=== PATIENT | female | born 1990 | race Two or more races ===

== ENCOUNTER 2020-05-12 20:05 | Emergency (ER) | payer MEDICAID, OTHER ==
[~2020-05-12] VITALS: Ht 160 cm; Wt 68.0 kg
[2020-05-12 20:18] VITALS: BP 121/75
[2020-05-12 21:39] LABS: Basophils # (auto) 0.1 10 ^3/uL (0-0.2); Eosinophils # (auto) 0.6 10 ^3/uL (0-0.8); Eosinophils % (auto) 6.1 % (0.0-7.0); Hemoglobin 13.4 g/dL (12.2-16.2); Lymphocytes # (auto) 3.3 10 ^3/uL (0.4-5.4); Lymphocytes % (auto) 32.2 % (10.0-50.0); Mean Corpuscular Hemoglobin 28.6 pg (28.0-32.0); Mean Corpuscular Hgb Conc. 33.5 g/dL (32.0-36.0); Mean Corpuscular Volume 85.2 fL (80.0-100.0); Monocytes # (auto) 0.7 10 ^3/uL (0-1.3); Monocytes % (auto) 6.5 % (0.0-12.0); Neutrophils # (auto) 5.5 10 ^3/uL (1.6-8.6); Neutrophils % (auto) 54.2 % (37.0-80.0); Platelet Count (auto) 284 10^3/uL (140-450); Red Blood Cells 4.69 10^6/uL (4.0-5.20); Red Cell Distribution Width 12.7 % (11.8-14.3); White Blood Cell 10.2 10^3/uL (4.4-10.8)
[2020-05-12 22:01] LABS: Albumin 3.6 g/dL (3.4-5.0); Anion Gap 5 (5-15); BUN/Creatinine Ratio 14.3; Blood Urea Nitrogen 11 mg/dL (7-18); Calcium 8.3 mg/dL (8.5-10.1); Carbon Dioxide 25 mmol/L (21-32); Chloride 108 mmol/L (98-107); GFR African American 116 mL/min; GFR Non-African American 96 mL/min; Glucose 96 mg/dL (74-106); Potassium 4.7 mmol/L (3.5-5.1); Sodium 138 mmol/L (136-145)
[2020-05-12 22:04] LABS: Alanine Aminotransferase 20 U/L (13-56); Alkaline Phosphatase 68 U/L (45-117); Aspartate Aminotransferase 15 U/L (15-37); Bilirubin, Total 0.3 mg/dL (0.2-1.0); Total Protein 6.9 g/dL (6.4-8.2)
[2020-05-12 22:19] LABS: Partial Thromboplastin Time 28.6 sec (23.0-31.2)
[2020-05-12 22:29] LABS: Urine Bacteria FEW /hpf (None Seen); Urine Blood 3+ /uL (Negative); Urine WBC 21 /hpf (0 - 5); Urine WBC Clumps PRESENT /hpf (None Seen)
[2020-05-12 22:32] LABS: Urine Specific Gravity 1.028 (1.001-1.035)
== END 2020-05-13 00:32 | disposition home or self-care (01) ==
LOC: ER 20:07
DX: N92.6 Irregular menstruation, unspecified (principal); Z88.0 Allergy status to penicillin
CPT/HCPCS: 36415; 80053; 81001; 84702; 85025; 85610; 85730

== ENCOUNTER 2021-02-04 12:25 | Observation (INO) | payer MEDICAID ==
[2021-02-04] MEDS ORDERED: PREN-96 PO (14:02)
== END 2021-02-04 14:19 | disposition home or self-care (01) ==
LOC: LDRP 12:25
PROVIDERS: ADMIT Obstetrics & Gynecology; ATTEND Obstetrics & Gynecology
DX: O34.63 Maternal care for abnormality of vagina, third trimester (principal); N89.8 Other specified noninflammatory disorders of vagina; O26.893 Other specified pregnancy related conditions, third trimester; R10.9 Unspecified abdominal pain; Z3A.38 38 weeks gestation of pregnancy; Z79.899 Other long term (current) drug therapy; Z88.0 Allergy status to penicillin
CPT/HCPCS: 59025; 81002; 84112; 94760; G0378; G0379; Q0114

== ENCOUNTER 2021-03-01 17:45 | Emergency (ER) | payer MEDICAID ==
[~2021-03-01] VITALS: Ht 157.5 cm; Wt 72.6 kg
[~2021-03-01 17:45] MED LIST: PREN-96 PO
[2021-03-01 17:47] VITALS: BP 128/83
== END 2021-03-02 00:25 | disposition left against medical advice (07) ==
LOC: ER 17:45
DX: M79.601 Pain in right arm (principal); R22.31 Localized swelling, mass and lump, right upper limb; L53.9 Erythematous condition, unspecified; Z53.21 Procedure and treatment not carried out due to patient leaving prior to being seen by health care provider

== ENCOUNTER 2022-07-07 16:58 | Emergency (ER) | payer MEDICAID ==
[~2022-07-07] VITALS: Ht 157.5 cm; Wt 70.8 kg
[2022-07-07 17:44] VITALS: BP 116/71
== END 2022-07-07 21:20 | disposition left against medical advice (07) ==
LOC: ER 16:58
DX: H92.03 Otalgia, bilateral (principal); R51.9 Headache, unspecified; Z53.21 Procedure and treatment not carried out due to patient leaving prior to being seen by health care provider

== ENCOUNTER 2024-06-26 19:23 | Emergency (ER) | payer MEDICAID ==
[~2024-06-26] VITALS: Ht 160 cm; Wt 65.9 kg
--- NOTE | 2024-06-26 20:10 | DVH ---
Exam: US ABDOMEN LIMITED Date: 06/26/2024 07:42 PM Clinical History: Evaluate umbilical hernia Comparison: None Technique: Targeted sonographic evaluation of the soft tissues of the umbilical area was obtained utilizing roth scale and color Doppler imaging. Findings: Is a 1.6 x 1.3 x 1.7 cm isoechoic noncompressible collection in the area of the umbilicus which may r epresent an umbilical hernia. IMPRESSION: 1. 1.6 x 1.3 x 1.7 cm isoechoic collection in the area of the umbilicus suggesting an umbilical osiel ia
[2024-06-26 20:35] VITALS: BP 120/76; PULSE 72; RESP 16; TEMP 98.6; O2SAT 98
[2024-06-26] MEDS ORDERED: IBUP-1455 PO (20:35)
--- NOTE | 2024-06-26 20:35 | ED.PDOC ---
History of Present Illness HPI Comments This patient is a pleasant 34-year-old female who arrives to the ED today for evaluation of umbilical hernia concerns. Patient states that she has known of her umbilical hernia for the past year, but over the past two days the area has been painful and she is concerned about incarceration. Patient denies any fever nausea or vomiting. Patient denies any recent trauma. Vital signs were stable on arrival. Chief Complaint: Abdominal Pain Time Seen by MD: 19:30 Primary Care Provider: CRISTIANO Reviewed Notes: Nurses Notes Allergies: Coded Allergies: Penicillins (Verified Allergy, Unknown, 05/12/20) Home Meds Reported Medications Vit W/ Ferrous Fumara ( One Daily) Daily Tab, 1 TAB PO DAILY, #90 TAB 3 Refills 02/04/21 Information Source: Patient Mode of Arrival: Ambulatory Severity: Moderate Timing: Days Duration: Since onset Prehospital treatment: None Past Medical History PAST MEDICAL HISTORY: Denies Past Medical History (Other): History of umbilical hernia Surgical History: Denies all surgeries HAND RIGGER History: Denies all HAND RIGGER Hx Family History Family History: Reviewed,noncontributory to illness Social History Smoker: Non-Smoker Alcohol: Denies ETOH Use Drugs: Denies Drug Use Lives In: Home Constitutional: denies: chills, diaphoresis, fatigue, fever, malaise, sweats, weakness, others EENTM: denies: blurred vision, double vision, ear bleeding, ear discharge, ear drainage, ear pain, ear ringing, eye pain, eye redness, hearing loss, mouth pain, mouth swelling, nasal discharge, nose bleeding, nose congestion, nose pain, photophobia, tearing, throat pain, throat swelling, voice changes, others Respiratory: denies: cough, hemoptysis, orthopnea, SOB at rest, shortness of breath, SOB with excertion, stridor, wheezing, others Cardiovascular: denies: chest pain, dizzy spells, diaphoresis, Dyspnea on exertion, edema, irregular heart beat, left arm pain, lightheadedness, palpitations, PND, syncope, others Gastrointestinal: reports: abdominal pain; denies: abdomen distended, blood streaked bowels, constipated, diarrhea, dysphagia, difficulty swallowing, hematemesis, melena, nausea, poor appetite, poor fluid intake, rectal bleeding, rectal pain, vomiting, others Genitourinary: denies: abnormal vagina bleeding, burning, dyspareunia, dysuria, flank pain, frequency, hematuria, incontinence, pain, , vagina discharge, urgency, others Neurological: denies: dizziness, fainting, headache, left sided numbness, left sided weakness, numbness, paresthesia, pre-existing deficit, right sided numbness, right sided weakness, seizure, speech problems, tingling, tremors, weakness, others Musculoskeletal: denies: back pain, gout, joint pain, joint swelling, muscle pain, muscle stiffness, neck pain, others Integumetry: denies: bruises, change in color, change in hair/nails, dryness, laceration, lesions, lumps, rash, wounds, others Allergic/Immunocompromised: denies: Difficulty Healing, Frequent Infections, Hives, Itching, others Hematologic/Lymphatic: denies: anemia, blood clots, easy bleeding, easy bruising, swollen glands, others Endocrine: denies: excessive hunger, excessive sweating, excessive thirst, excessive urination, flushing, intolerance to cold, intolerance to heat, unexplained weight gain, unexplained weight loss, others Psychiatric: denies: anxiety, bipolar disorder, depression, hopeless, panic disorder, schizophrenia, sleepless, suicidal, others Physical Exam General Appearance: Moderate Distress ( [id number] distress due to umbilical hernia concerns. Patient declined the need for any pain medication while at the facility.), Normal HEENT: Normal ENT Inspection, Pharynx Normal, TMs Normal Neck: Full Range of Motion, Non-Tender, Normal, Normal Inspection Respiratory: Chest Non-Tender, Lungs Clear, No Accessory Muscle Use, No Respiratory Distress, Normal Breath Sounds Cardiovascular: No Edema, No JVD, No Murmur, No Gallop, Normal Peripheral Pulses, Regular Rate/Rhythm Breast Exam: Deferred Gastrointestinal: Other ( Patient has a small pouching at the umbilicus. Appears to be reducible. No erythema or edema.) Genitalia: Deferred Pelvic: Deferred Rectal: Deferred Extremities: No calf tenderness, Normal capillary refill, Normal inspection, Normal range of motion, Non-tender, No pedal edema Neurologic: Alert, No Motor Deficits, Normal Affect, Normal Mood, No Sensory Deficits Cerebellar Function: Normal Reflexes: Normal Skin: Dry, Normal Color, Warm Lymphatic: No Adenopathy Was a procedure done? Was a procedure done?: No Differential Dx Considerations may include: Umbilical hernia, incarcerated hernia, strangulated hernia X-Ray, Labs, Meds, VS Vital Signs Date Time Temp Pulse Resp B/P (MAP) Pulse Ox O2 Delivery O2 Flow Rate FiO2 06/26/24 19:36 98.1 75 16 118/48 (71) 97 98.1 X-Ray, Labs, Meds, VS Comment All studies performed the ED were evaluated by me personally. Ultrasound was remarkable for an umbilical hernia without incarceration or strangulation. Advised patient follow up with the primary care provider. Pain medications as needed. Time of 1ST Reevaluation: 20:33 Reevaluation 1ST: Unchanged Consultation: PCP, Surgery Patient Education/Counseling: Diagnosis, Treatment Family Education/Counseling: Diagnosis, Treatment Departure 1 Departure Time of Disposition: 20:34 Impression: Primary Impression: Umbilical hernia Disposition: 01 HOME / SELF CARE / HOMELESS Condition: Stable Additional Instructions: SP medication as needed and additionally, patient will need to follow up with the primary care provider for evaluation of umbilical hernia concerns. e-Prescriptions Ibuprofen Micronized (Ibuprofen) 800 Mg Tab 800 MG PO Q8HP PRN, #20 TAB Prov: AGATA HAGEN PAC 06/26/24 Discharged With: Self, Friend Critical Care Note Critical Care Time?: No Stability Stability form required: No Heart Score Heart Score: Heart Score Response (Comments) Value History N/A 0 EKG N/A 0 Age N/A 0 Risk Factors N/A 0 Troponin N/A 0 Total 0 AGATA HAGEN PAC Jun 26, 2024 20:35
== END 2024-06-26 20:55 | disposition home or self-care (01) ==
LOC: ER 19:23
DX: K42.9 Umbilical hernia without obstruction or gangrene (principal); Z88.0 Allergy status to penicillin; Z79.899 Other long term (current) drug therapy
CPT/HCPCS: 76705